=== PATIENT | male | born 1940 | race Caucasian/White ===

== ENCOUNTER 2017-12-10 10:59 | Observation (INO) | payer OTHER ==
[~2017-12-10] VITALS: Ht 182.9 cm; Wt 130.0 kg
[2017-12-10 11:04] VITALS: Ht 182.9 cm; Wt 130.0 kg
[2017-12-10 12:48] LABS: BASOPHIL % 0.7 % (0-2); PLATELET COUNT 306 x10^3mcL (130-400)
[2017-12-10 13:01] LABS: RED CELL DISTRIBUTION WIDTH 16.2 % (11.5-14.5)
[2017-12-10 13:08] LABS: CARBON DIOXIDE 35.1 mmol/L (21-32); CHLORIDE SERUM 103 mmol/L (98-107); CREATININE SERUM 0.9 mg/dL (0.7-1.3); GLUCOSE SERUM 104 mg/dL (74-106); POTASSIUM SERUM 3.5 mmol/L (3.5-5.1); SODIUM SERUM 144 mmol/L (136-145)
[2017-12-10 13:12] LABS: ALKALINE PHOSPHATASE 56 U/L (46-116); ALT/SGPT 13 U/L (16-63); AST/SGOT 11 U/L (15-37); BILIRUBIN TOTAL 0.63 mg/dL (0.20-1.00); TOTAL PROTEIN, SERUM 7.4 g/dL (6.4-8.2)
[2017-12-10 13:13] LABS: ALBUMIN 3.2 g/dL (3.4-5.0)
[2017-12-10] MEDS ORDERED: METFORMIN HCL500 MG PO (13:50)
[2017-12-10] MEDS ORDERED: BENAZEPRIL HYDR20 M1 PO (13:50)
[2017-12-10] MEDS ORDERED: HYDROCHLOROTHIA25 MG PO (13:50)
[2017-12-10] MEDS ORDERED: AMLODIPINE (13:51)
[2017-12-10 14:14] VITALS: BP 137/67
[2017-12-10 15:01] LABS: T3 TOTAL 0.91 ng/mL
[2017-12-10 15:13] VITALS: BP 137/67
[2017-12-10 15:55] LABS: FREE THYROXINE INDEX 2.3 ug/dL (1.4-4.5); T4(THYROXINE) 6.7 ug/dL (4.7-13.3)
[2017-12-10] MEDS ORDERED: TRIAMTERENE AND1 CA1 PO (15:55)
[2017-12-10] MEDS ORDERED: NOR10 PO (15:57)
[2017-12-10 16:26] LABS: CHOLESTEROL/HDL RATIO 2.9; MAGNESIUM 1.8 mg/dL (1.8-2.4); PHOSPHOROUS 3.5 mg/dL (2.5-4.9)
[2017-12-10] MEDS ORDERED: DORZOLAMIDE HYD10 ML OP (16:57)
[2017-12-10] MEDS ORDERED: ALPHAGAN P5 M1 OP (16:58)
[2017-12-10] MEDS ORDERED: BETIMOL5 M1 OP (16:58)
[2017-12-10] MEDS ORDERED: LATANOPROST2.5 ML OP (16:59)
[2017-12-10 20:58] VITALS: BP 120/65
[2017-12-11 01:17] LABS: UA SPECIFIC GRAVITY 1.015 (1.005-1.035); microscopic required? YES; urine erythrocyte NEGATIVE (NEGATIVE)
[2017-12-11 02:00] LABS: AMPHETAMINE QUAL UR NONE DETECTED (See below)
[2017-12-11 05:52] VITALS: BP 118/53
[2017-12-11 06:56] LABS: CALCIUM 8.3 mg/dL (8.5-10.1); CARBON DIOXIDE 34.6 mmol/L (21-32); CHLORIDE SERUM 105 mmol/L (98-107); CREATININE SERUM 0.9 mg/dL (0.7-1.3); GLUCOSE SERUM 96 mg/dL (74-106); POTASSIUM SERUM 3.3 mmol/L (3.5-5.1); SODIUM SERUM 143 mmol/L (136-145)
[2017-12-11 07:07] LABS: BASOPHIL % 0.7 % (0-2); PLATELET COUNT 268 x10^3mcL (130-400)
[2017-12-11 07:24] LABS: RED CELL DISTRIBUTION WIDTH 16.5 % (11.5-14.5)
[2017-12-11 08:43] VITALS: BP 138/58
[2017-12-11] MEDS ORDERED: ASPIRIN ADULT L81 M5 PO (09:45)
[2017-12-11] MEDS ORDERED: LIPI10 PO (09:46)
[2017-12-11] MEDS ORDERED: LAC PO (09:47)
[2017-12-11] MEDS ORDERED: CLINDAMYCIN300 M1 PO (09:47)
[2017-12-11 12:39] VITALS: BP 108/51
[2017-12-11 13:43] VITALS: BP 108/51
[2017-12-11 18:00] VITALS: BP 136/76
== END 2017-12-11 19:35 | disposition home or self-care (01) | DRG 602 ==
LOC: ED 10:59 → DU 13:53
PROVIDERS: Emergency Medicine; Family Medicine
DX: L03.116 Cellulitis of left lower limb (principal); N17.0 Acute kidney failure with tubular necrosis; E44.0 Moderate protein-calorie malnutrition; D68.59 Other primary thrombophilia; I87.2 Venous insufficiency (chronic) (peripheral); E11.59 Type 2 diabetes mellitus with other circulatory complications; G47.33 Obstructive sleep apnea (adult) (pediatric); E87.6 Hypokalemia; I10 Essential (primary) hypertension; H40.9 Unspecified glaucoma; D64.9 Anemia, unspecified; Z68.38 Body mass index [BMI] 38.0-38.9, adult; Z79.84 Long term (current) use of oral hypoglycemic drugs; Z86.718 Personal history of other venous thrombosis and embolism
CPT/HCPCS: 83880; 84439; G0378; J2270; J2405; J2543; J3490; J7030; Q0092